=== PATIENT | male | born 1985 | race Caucasian/White ===

== ENCOUNTER 2017-09-20 16:25 | Emergency (ER) | payer SELFPAY ==
[~2017-09-20] VITALS: Ht 188 cm; Wt 81.0 kg
[~2017-09-20 16:25] MED LIST: ADDE30TA PO; CYCL10TA PO; IBUP1TAB7 PO
[2017-09-20 16:43] VITALS: BP 135/65; PULSE 94; RESP 17; TEMP 98.2; O2SAT 99
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
[2017-09-20] MEDS ORDERED: KETOROLAC TROMETHAMINE 60 MG/2 ML (IM) VIAL IM ONE (18:00)
[2017-09-20] MEDS ORDERED: ORPHENADRINE INJ 60 MG/2 ML AMP IM ONE (18:00)
[2017-09-20] MEDS ORDERED: MORPHINE SULFATE 4 MG/ML INJ IM ONE (18:00)
--- NOTE | 2017-09-20 18:38 | RADRPT ---
EXAM DATE/TIME: 09/20/2017 18:16 [facility] COMPARISON: No previous studies available for comparison. INDICATIONS : Back pain for 2 weeks. RADIATION DOSE: 20.04 CTDIvol (mGy) MEDICAL HISTORY : None SURGICAL HISTORY : None. ENCOUNTER: Initial ACUITY: 2 weeks PAIN SCALE: 7/10 LOCATION: neck TECHNIQUE: Volumetric scanning of the cervical spine was performed. Multiplanar reconstructions in the sagittal, coronal and oblique axial planes were performed. Using automated exposure control and adjustment o f the mA and/or kV according to patient size, radiation dose was kept as low as reasonably achievable to obtain optimal diagnostic quality images. DICOM format image data is available electronically f or review and comparison. FINDINGS: VERTEBRAE: Normal vertebral body height. No fracture is visualized. ALIGNMENT: No intra-listhesis or retrolisthesis. The craniocervical junction and C1-C2 level demonstrate no abnormality. C2-C3: No disc herniation, canal stenosis, or neural foraminal stenosis. C3-C4: No disc herniation, canal stenosis, or neural foraminal stenosis. C4-C5: No disc herniation, canal stenosis, or neural foraminal stenosis. C5-C6: No disc herniation, canal stenosis, or neural foraminal stenosis. C6-C7: No disc herniation, canal stenosis, or neural foraminal stenosis. C7-T1: No disc herniation, canal stenosis, or neural foraminal stenosis. The visualized surrounding structures demonstrate no abnormality. CONCLUSION: Examination of the cervical spine is within normal limits. There is no acute abnormality and no canal stenosis or neural foraminal stenosis is visualized. Arcadio Solorzano MD on September 20, 2017 at 18:31 Board Certified Radiologist. This report was verified electronically.
--- NOTE | 2017-09-20 19:17 | RADRPT ---
EXAM DATE/TIME: 09/20/2017 18:22 [facility] COMPARISON: No previous studies available for comparison. INDICATIONS : Back pain for 2 weeks. RADIATION DOSE: 23.81 CTDIvol (mGy) ; Combined studies - Thoracic Spine/Lumbar Spine MEDICAL HISTORY : None SURGICAL HISTORY : None. ENCOUNTER: Initial ACUITY: 2 weeks PAIN SCALE: 7/10 LOCATION: upper back TECHNIQUE: Volumetric scanning of the thoracic spine was performed. Multiplanar reconstructions in the sagittal , coronal and oblique axial planes were performed. Using automated exposure control and adjustment o f the mA and/or kV according to patient size, radiation dose was kept as low as reasonably achievable to obtain optimal diagnostic quality images. DICOM format image data is available electronically f or review and comparison. FINDINGS: Vertebral body height is maintained. No fracture is present. There is no anterolisthesis or retrolist hesis. Schmorl's nodes are present at the T11, T12, and L1 endplates. T1-T2: No disc herniation, canal stenosis, or neural foraminal stenosis is visualized. T2-T3: No disc herniation, canal stenosis, or neural foraminal stenosis is visualized. T3-T4: The thecal sac has a normal diameter. No evidence of disc bulge or protrusion. T4-T5: The thecal sac has a normal diameter. No evidence of disc bulge or protrusion. T5-T6: The thecal sac has a normal diameter. No evidence of disc bulge or protrusion. T6-T7: The thecal sac has a normal diameter. No evidence of disc bulge or protrusion. T7-T8: The thecal sac has a normal diameter. No evidence of disc bulge or protrusion. T8-T9: The thecal sac has a normal diameter. No evidence of disc bulge or protrusion. T9-T10: The thecal sac has a normal diameter. No evidence of disc bulge or protrusion. T10-T11: The thecal sac has a normal diameter. No evidence of disc bulge or protrusion. T11-T12: The thecal sac has a normal diameter. No evidence of disc bulge or protrusion. T12-L1: The thecal sac has a normal diameter. No evidence of disc bulge or protrusion. The visualized surrounding structures demonstrate no acute finding. CONCLUSION: No significant thoracic spine abnormality is identified. Arcadio Solorzano MD on September 20, 2017 at 19:12 Board Certified Radiologist. This report was verified electronically.
--- NOTE | 2017-09-20 19:20 | RADRPT ---
EXAM DATE/TIME: 09/20/2017 18:22 [facility] COMPARISON: No previous studies available for comparison. INDICATIONS : Back pain for 2 weeks. RADIATION DOSE: 23.81 CTDIvol (mGy) ; Combined studies - Thoracic Spine/Lumbar Spine MEDICAL HISTORY : None SURGICAL HISTORY : None. ENCOUNTER: Initial ACUITY: 2 weeks PAIN SCALE: 7/10 LOCATION: lower back TECHNIQUE: Volumetric scanning of the lumbar spine was performed. Multiplanar reconstructions in the sagittal, coronal and oblique axial planes were performed. Using automated exposure control and adjustment of the mA and/or kV according to patient size, radiation dose was kept as low as reasonably achievable t o obtain optimal diagnostic quality images. DICOM format image data is available electronically for review and comparison. FINDINGS: VERTEBRAE: Normal vertebral body height. No fracture is visualized. There are small Schmorl's nodes at the endpl ates at L1, L2, L3, and L4. ALIGNMENT: No anterolisthesis or retrolisthesis. T12-L1: No disc herniation, canal stenosis, or neural foraminal stenosis. L1-L2: No disc herniation, canal stenosis, or neural foraminal stenosis. L2-L3: There is mild decreased disc height with a diffuse disc bulge. No spinal canal stenosis or neural for aminal stenosis is present. L3-L4: There is mild decreased disc height with a diffuse disc bulge. No spinal canal stenosis or neural for aminal stenosis is present. L4-L5: There is mild decreased disc height with a diffuse disc bulge. No spinal canal stenosis or neural for aminal stenosis is present. L5-S1: No disc herniation, canal stenosis, or neural foraminal stenosis. The visualized surrounding structures demonstrate no acute finding. CONCLUSION: Mild degenerative change of the lumbar spine, as above. However, no significant spinal canal stenosis or neural foraminal stenosis is present. Arcadio Solorzano MD on September 20, 2017 at 19:14 Board Certified Radiologist. This report was verified electronically.
[2017-09-20] MEDS ORDERED: CYCL5TAB PO (19:30)
[2017-09-20] MEDS ORDERED: NAPR500 PO (19:30)
== END 2017-09-20 20:04 | disposition home or self-care (01) ==
LOC: NEPD 16:25
DX: M54.5 Low back pain (principal); G89.29 Other chronic pain; F90.9 Attention-deficit hyperactivity disorder, unspecified type; F17.210 Nicotine dependence, cigarettes, uncomplicated; F12.90 Cannabis use, unspecified, uncomplicated
CPT/HCPCS: 72125; 72128; 72131; 96372; 99283; J1885; J2270; J2360